=== PATIENT | female | born 1950 | race Caucasian/White ===

== ENCOUNTER 2025-05-23 13:11 | Outpatient (REF) | payer MEDICARE, SELFPAY ==
[2025-05-23 15:42] LABS: HCT 48.0 % (36.0-46.0); HGB 16.1 g/dL (11.2-15.7); MCH 30.3 pg (27.0-33.0); MCHC 33.5 % (32.0-36.0); MCV 90 fL (80-95); MPV 10.9 fL (8.0-11.0); Platelet Count 282 10^3/uL (130-400); RBC 5.32 10^6/uL (3.93-5.22); RDW 11.6 % (11.7-14.6); RDW-SD 38.3 fL; WBC 4.35 10^3/uL (4.4-10.8)
[2025-05-23 16:03] LABS: ALT 35 U/L (10-49); AST 32 U/L (<34); Albumin 4.8 g/dL (3.4-5.0); Alkaline Phosphatase 111 U/L (46-116); Anion Gap 5.3 mmol/L (3-11); BUN 18 mg/dL (9-23); Bilirubin, Total 0.70 mg/dL (0.2-1.2); CO2 28.7 mmol/L (20.0-31.0); Calcium 9.7 mg/dL (8.3-10.6); Chloride 106 mmol/L (98-107); Cholesterol 202 mg/dL (<200); Glucose 105 mg/dL (74-106); HDL Cholesterol 60 mg/dL (>40); Potassium 4.3 mmol/L (3.5-5.1); Sodium 140 mmol/L (136-145); Total Protein 7.9 g/dL (5.7-8.2)
== END 2025-05-23 13:12 | disposition home or self-care (01) ==
LOC: NCHCN 13:11
PROVIDERS: PCP Family Medicine; Visit Provider Internal Medicine
DX: I10 Essential (primary) hypertension (principal)
CPT/HCPCS: 80053; 80061; 85027